=== PATIENT | female | born 1990 ===

== ENCOUNTER 2018-05-22 12:42 | Emergency (ER) | payer SELFPAY ==
[~2018-05-22] VITALS: Ht 160 cm; Wt 82.0 kg
[2018-05-22 12:50] VITALS: BP 140/89; PULSE 76; RESP 16; TEMP 98.9; O2SAT 99
== END 2018-05-22 14:20 | disposition left against medical advice (07) ==
LOC: NED 12:42
DX: H57.9 Unspecified disorder of eye and adnexa (principal)
CPT/HCPCS: 99281